=== PATIENT | female | born 1945 | race Caucasian/White ===

== ENCOUNTER 2023-01-08 10:42 | Outpatient (OUT) | payer MEDICARE, SELFPAY ==
--- NOTE | 2023-01-08 | XR_ITS ---
The [address] [address] Patient Name: PARDEEP PIMENTEL MRN: [id number] date: 1945 Sex: F Assigned Patient Location: [facility] Current Patient Location: Accession/Order Number: [id number] Exam Date: 01/08/2023 11:19 Report Date: 01/10/2023 10:26 At the request of: JT FONG Procedure: XR foot LT min 3V PROCEDURE: XR foot LT min 3V HISTORY: LEFT FOOT PAIN ; left heel pain COMPARISON: None. FINDINGS: BONES:Mild flattening of the plantar arch. No fracture, dislocation, bone lesion. Minimal degenerative joint disease of the midfoot. Tiny calcaneal plantar spur. SOFT TISSUES:No visible soft tissue swelling. EFFUSION:None visible. OTHER: Negative. XR/XR foot LT min 3V IMPRESSION: 1. Mild pes planus and tiny calcaneal plantar spur. Electronically authenticated by: SB PLASENCIA Date: 01/10/2023 10:26
== END 2023-01-08 10:43 | disposition home or self-care (01) ==
PROVIDERS: Visit Provider Podiatrist Foot & Ankle Surgery
DX: M79.672 Pain in left foot (principal); M21.42 Flat foot [pes planus] (acquired), left foot; M77.32 Calcaneal spur, left foot
CPT/HCPCS: 73630

== ENCOUNTER 2023-01-13 14:17 | Outpatient (RCR) | payer MEDICARE, SELFPAY | END 2023-02-09 09:00 | disposition home or self-care (01) | LOC: PT 14:17 | PROVIDERS: PCP Internal Medicine; Visit Provider Podiatrist Foot & Ankle Surgery | DX: M79.672 Pain in left foot (principal); M79.671 Pain in right foot | CPT/HCPCS: 97035; 97110; 97112; 97140; 97161 ==

== ENCOUNTER 2023-02-10 08:59 | Outpatient (RCR) | payer MEDICARE, SELFPAY | END 2023-02-11 15:51 | disposition home or self-care (01) | LOC: PT 08:59 | PROVIDERS: PCP Internal Medicine; Visit Provider Podiatrist Foot & Ankle Surgery | DX: M79.672 Pain in left foot (principal) ==

== ENCOUNTER 2023-06-05 13:43 | Outpatient (OUT) | payer MEDICARE, SELFPAY ==
--- NOTE | 2023-06-05 13:47 | CT_ITS ---
[address] [address] Patient Name: PARDEEP PIMENTEL MRN: [id number] date: 1945 Sex: F Assigned Patient Location: CT Current Patient Location: Accession/Order Number: [id number] Exam Date: 06/05/2023 13:56 Report Date: 06/06/2023 06:19 At the request of: MINDA FRAZIER Procedure: CT chest wo con EXAMINATION: CT chest wo con HISTORY: Abnormal Chest Xray , wheezing COMPARISON: No relevant comparison available. TECHNIQUE: Multi-planar CT images were obtained without and/or with IV contrast as indicated by examination type. Axial, Coronal, and Sagittal images. Dose reduction techniques were achieved by using automated exposure control and/or adjustment of mA and/or kV according to patient size and/or use of iterative reconstruction technique. FINDINGS: LUNGS: Patchy and confluent opacities scattered throughout the right and left lungs. Interstitial septal thickening predominantly within lung bases suggestive of pulmonary edema. PLEURA: Bilateral pleural effusions approximately 5 mm in thickness. VASCULATURE: No abnormality. STERLING: No mass or adenopathy. MEDIASTINUM: No mass or adenopathy. CARDIAC: Trace amount of pericardial fluid. No cardiac enlargement. Minimal atherosclerotic disease. AORTA: No aneurysm or dissection. CHEST WALL: No mass or axillary adenopathy. BONES: No bone lesion or fracture. LIMITED ABDOMEN: Left hepatic lobe hypodensity favoring a cyst. Limited images of the upper abdomen. OTHER: Negative. CT/CT chest wo con IMPRESSION: 1. Bilateral patchy pulmonary infiltrates suggestive of mild-moderate pneumonia. 2. Suspect underlying mild pulmonary edema. Electronically authenticated by: SB PLASENCIA Date: 06/06/2023 06:19
== END 2023-06-05 13:44 | disposition home or self-care (01) ==
LOC: CT 13:43
PROVIDERS: PCP Internal Medicine
DX: R93.89 Abnormal findings on diagnostic imaging of other specified body structures (principal); R06.2 Wheezing; R91.8 Other nonspecific abnormal finding of lung field
CPT/HCPCS: 71250

== ENCOUNTER 2024-11-05 12:53 | Outpatient (RCR) | payer MEDICARE, SELFPAY | END 2024-12-03 08:38 | disposition home or self-care (01) | LOC: PT 12:53 | PROVIDERS: PCP Internal Medicine; Visit Provider Anesthesiology | DX: M54.50 Low back pain, unspecified (principal); G89.29 Other chronic pain; M48.062 Spinal stenosis, lumbar region with neurogenic claudication | CPT/HCPCS: 97110; 97113; 97140; 97161 ==